=== PATIENT | male | born 1990 | race Caucasian/White ===

== ENCOUNTER 2017-05-28 07:28 | Day surgery (SDC) | payer BC ==
[2017-05-26 09:02] VITALS: BMI 31.4
[2017-05-28] MEDS ORDERED: TAMSULOSIN HCL 0.4 MG CAP.ER.24H (FP) ONE (07:46)
[2017-05-28] MEDS ORDERED: DEXAMETHASONE SOD PHOSPHATE/PF 10 MG/ML SDV ONE (08:30)
[2017-05-28] MEDS ORDERED: MIDAZOLAM HCL 2 MG/2 ML SINGLE DOSE VIAL ONE (08:31)
[2017-05-28] MEDS ORDERED: ROPIVACAINE HCL 0.5% 30ML VIAL ONE (08:31)
[2017-05-28] MEDS ORDERED: PROPOFOL 20 ML ONE ×2 (08:56→09:48)
[2017-05-28] MEDS ORDERED: fentaNYL CITRATE 250 MCG/5 ML VIAL ONE (08:56)
[2017-05-28] MEDS ORDERED: SUCCINYLCHOLINE CHLORIDE 200 MG/10 ML VIAL ONE (08:56)
[2017-05-28] MEDS ORDERED: ROCURONIUM BROMIDE 50 MG/5 ML VIAL ONE (08:57)
[2017-05-28] MEDS ORDERED: LIDOCAINE HCL/PF 2% SDV 5ML VIAL ONE (09:41)
[2017-05-28] MEDS ORDERED: DEXAMETHASONE SOD PHOSPHATE 4 MG/1 ML VIAL ONE (09:41)
[2017-05-28] MEDS ORDERED: ceFAZolin SODIUM 1 GM VIAL ONE (09:41)
[2017-05-28] MEDS ORDERED: ONDANSETRON 4 MG/2 ML VIAL ONE (09:41)
[2017-05-28] MEDS ORDERED: KETOROLAC TROMETHAMINE 30 MG/1 ML VIAL ONE (09:41)
[2017-05-28] MEDS ORDERED: NEOSTIGMINE METHYLSULFATE 0.5 MG/ML - 10 ML MDV ONE (09:42)
[2017-05-28] MEDS ORDERED: GLYCOPYRROLATE 0.2 MG/1 ML VIAL ONE (09:42)
[2017-05-28] MEDS ORDERED: BUPIVACAINE HCL/PF 0.5% (5MG/ML) 10 ML VIAL ONE (10:09)
[2017-05-28] MEDS ORDERED: BUPIVACAINE HCL/PF (5 MG/ML) 30 ML VIAL IJ ONE (10:31)
[2017-05-28 11:42] VITALS: TEMP 97.7
[2017-05-28] MEDS ORDERED: oxyCODONE HCL 5 MG TABLET PO PRN ×2 (11:42)
[2017-05-28] MEDS ORDERED: PROMETHAZINE HCL 25 MG/1 ML VIAL IVPUSH PRN (11:42)
[2017-05-28] MEDS ORDERED: ONDANSETRON 4 MG/2 ML VIAL IVPUSH PRN (11:42)
[2017-05-28] MEDS ORDERED: LACTATED RINGERS SOLUTION 1,000 ML IV SCH (11:45)
[2017-05-28] MEDS ORDERED: oxyCODONE HCL 5 MG TABLET ONE ×2 (13:41→14:21)
[2017-05-28] MEDS ORDERED: ONDANSETRON *ODT* 4 MG TABLET ONE (15:17)
--- NOTE | 2017-05-28 15:21 | OP ---
DATE OF OPERATION: 05/28/2017 PREOPERATIVE DIAGNOSIS: Right inguinal hernia. POSTOPERATIVE DIAGNOSIS: Right pantaloon inguinal hernia. PROCEDURE: Open right inguinal herniorrhaphy, no mesh, 8-cm intermediate wound closure. SURGEON: Lg Arauz MD CLINICAL TRIAL LEADER: John Paredes MD ANESTHESIA: Canelo Dietz MD ESTIMATED BLOOD LOSS: Minimal. SPECIMENS: Hernia sac. INDICATION FOR PROCEDURE: This is a 28-year-old gentleman with an obvious right inguinal hernia. He is symptomatic from the hernia and wished to have this repaired. Patient, his mom, and myself had a very long conversation before surgery regarding the pros and cons of mesh and no mesh. The patient has opted to proceed with no mesh. He understands no mesh means higher recurrence. We have also had a conversation regarding the pros and cons of different suture material, and the patient has opted to proceed with a dissolvable suture. Given that choice, his recurrence rates are going to be significantly higher, and he understands and is accepting. DESCRIPTION OF PROCEDURE: Patient identified and appropriately positioned on the operating room table. After placement of general anesthesia, the right lower abdomen and groin were prepped and draped in the usual sterile fashion with ChloraPrep. An 8-cm inguinal incision was deep, deepened to subcutaneous tissue. Radha's divided sharply. The fascia of the external oblique opened in the direction of its fibers through the external ring. The ilioinguinal nerve identified and retracted laterally. The cord structures were subsequently isolated at the level of the pubic tubercle. The cremasterics were divided sharply and the patient is noted have a large indirect inguinal hernia sac which was stripped back down to the level of the internal ring. At the level of the internal ring, it is obvious this gentleman had a direct inguinal hernia as well. The direct inguinal hernia was significantly large and caused significant attenuation of the inguinal floor medially towards the rectus. The indirect sac was suture ligated at its base with a 0 PDS suture. Given the significantly attenuated internal floor and the fact that we are not using mesh, the transversalis and transversus were bluntly down towards the level of the rectus. The rectus sheath was left in its anatomic position. The direct component was reached back into the inguinal floor, and the inguinal floor was subsequently imbricated with a running No. 2-0 PDS suture. Next, the remnants of the conjoint tendon/edge of the rectus was brought to the ilioinguinal ligament as a repair overlying this type of repair. This was done with interrupted 0 PDS sutures. Due to the large attenuation of the internal ring, the internal ring at this point was made to be very snug so as to decrease recurrence rates since there is no mesh and using dissolvable sutures. The operative field irrigated and noted to be hemostatic. The cord returned to its anatomic position along with the ilioinguinal nerve. The fascia of the external oblique reapproximated with a running 3-0 Vicryl suture. Radha's reapproximated with interrupted inverted 3-0 Vicryl suture and the skin closed with Biosyn followed by Dermabond. At the conclusion of this case, sponge counts were correct. ATTESTATION: Brief operative note handwritten on the preprinted form. [facility] queried prior to giving any narcotics and will be done electronically. Aure PATIÑO [id number]
[2017-05-28 15:32] VITALS: BP 122/60; PULSE 64
[2017-05-28] MEDS ORDERED: ONDANSETRON *ODT* 4 MG TABLET SL ONE (15:43)
--- NOTE | 2017-05-30 13:48 | HP ---
DATE OF ADMISSION: 05/28/2017 REASON FOR ADMISSION: Right inguinal hernia. BRIEF HISTORY: This is a 26-year-old gentleman who near the end of March 2017 was working in [place]. 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 Approximately 20 minutes later, he noted swelling in his right groin region. Over time, the swelling resolved. He underwent a CAT scan in [facility] in [place]. The CAT scan demonstrated a small, right-sided, fat-containing inguinal hernia and surgical consultation was advised. Since that time, the patient has had no nausea or vomiting. He does occasionally have pain in the right groin region. He has had no change in bowel habits. PAST MEDICAL HISTORY: No coronary artery disease, hypertension or diabetes. PAST SURGICAL HISTORY: The patient had an open left inguinal hernia repair as an . ALLERGIES: None. MEDICATIONS: Vitamins. SOCIAL HISTORY: He is a [employer]. He does not smoke. He drinks socially. PHYSICAL EXAMINATION: Abdomen: Soft, nontender, nondistended. He has an obvious right inguinal hernia of moderate to large size. The hernia extends into the right proximal scrotum. It is reducible with the patient in the supine position. The right scrotum and testicle are within normal limits. On the left side, he has a very well-healed inguinal scar. There is no obvious hernia. However, there is some laxity noted in the left groin and a small recurrence cannot be ruled out. IMPRESSION: Right inguinal hernia; laxity, left groin. PLAN: This is a 26-year-old gentleman who while on duty at work in [place] in March was lifting some boxes and subsequently developed pain and swelling in the right groin region. A CT scan performed at a local hospital demonstrated findings consistent with a right inguinal hernia. At this point, on physical examination, the patient has an obvious right inguinal hernia that is much larger than suggested on the CT scan. He is also symptomatic from this hernia. I would recommend proceeding with a laparoscopic right inguinal hernia repair. At the time of the laparoscopy, I will examine the left side and if an occult, recurrent hernia is noted, it will be repaired. If no hernia is noted, a piece of mesh will be left in space for reinforcement. The patient and I had a very long conversation (one hour) discussing various surgical approaches, the pros and cons of mesh and the pros and cons of absorbable and non-absorbable suture. The patient will do more research on various approaches to hernia repair as well as mesh repairs vs. no-mesh repairs. At this time, if he changes his mind, he will return to the office to again discuss his options. However, we will plan to operate on this gentleman on the date scheduled. The indications, alternatives and complications of all of the procedures have been discussed. Given the size of this hernia, we spent a long time talking about the possibility of seroma development after this kind of surgery. IVANA LEGGETT M.D. LEE [id number]
--- NOTE | 2017-05-30 14:23 | PATH ---
Surgical Pathology Report Patient Name: SACHIN KELSEY Med. Rec. #: [id number] /Age/Gender: 1990 (Age: 26) / M Account: [id number] Location: [facility] AMBUL[facility]ORY Taken: 05/28/2017 Received: 05/28/2017 Reported: 05/30/2017 Physicians: Lg Arauz Specimen(s) Received HERNIA SAC RIGHT Clinical History Unilateral right inguinal hernia without obstruction Final Diagnosis SOFT TISSUE, RIGHT INGUINAL, EXCISION: HERNIA SAC. Electronically Signed Nasir Osborn M.D. Gross Description Received in formalin labeled "hernia sac right," is a 5.0 x 1.0 x 0.8 cm schofield-guerra, irregular portion of fibromembranous tissue with attached fat, consistent with a hernia sac. Brim Edge Trimmer sections are submitted in one cassette. 05/29/201705/29/2017
== END 2017-05-28 15:35 | disposition home or self-care (01) ==
LOC: FASU 07:28
PROVIDERS: ATTEND Surgery
PROC: 0YQ50ZZ Repair Right Inguinal Region, Open Approach (ICD-10-PCS; principal; 2017-05-28 09:00)
DX: K40.90 Unilateral inguinal hernia, without obstruction or gangrene, not specified as recurrent (principal)
CPT/HCPCS: 88302-TC; 94760